=== PATIENT | male | born 1995 | race Native Hawaiian/Other Pacific Islander ===

== ENCOUNTER 2021-02-10 17:40 | Emergency (ER) | payer OTHER ==
[~2021-02-10] VITALS: Ht 182.8 cm; Wt 127.0 kg
--- NOTE | 2021-02-10 18:22 | ED Cough/URI ---
General Chief Complaint: Respiratory Problems Stated Complaint: FEVER,CHILLS,SOB Nursing Triage Note: Ambulatory to ED. Pt reports having seasonal allergies and has had a runny nose. Pt reports sudden onset of cough on SOB with exertion today at approximately 1330. Pt reports history of asthma but does not use inhalers or breathing treatments. Sepsis Screen: No Definite Risk Source: patient Exam Limitations: no limitations History of Present Illness Date Seen by Provider: February 10, 2021 Time Seen by Provider: 18:15 Initial Comments Patient is a 25-year-old male who presents to the emergency department today with a chief complaint of feeling short of breath and having a cough that is nonproductive. Patient states that he got home from work and went to lay down when he had a sudden onset of a coughing fit. He became concerned that he might have Covid secondary to the of his grandfather within the last month from Covid as well as several coworkers on different shifts testing positive over the course of the last 2 to 3 weeks. Patient states that he has had runny nose and congestion. He denies sore throat. He denies loss of taste or smell. These symptoms all started suddenly today. The patient states that he has a history of asthma and uses Benadryl for his allergies. He does not use inhalers. All other review of systems reviewed and negative except as stated. Timing/Duration: this afternoon Severity/Quality: moderate, dry cough Prior Episodes/Possible Cause: no prior episodes Modifying Factors: Improves With Coughing Associated Symptoms: nasal congestion, nasal drainage Allergies and Home Medications Allergies Coded Allergies: Sulfa (Sulfonamide Antibiotics) (Verified Allergy, Severe, Anaphylaxis, 02/10/21) codeine (Verified Allergy, Severe, Anaphylaxis, 02/10/21) Patient Home Medication List Home Medication List Reviewed: Yes Review of Systems Review of Systems Constitutional: see HPI EENTM: nose congestion Respiratory: cough, short of breath Cardiovascular: no symptoms reported Gastrointestinal: no symptoms reported Genitourinary: no symptoms reported Musculoskeletal: no symptoms reported Skin: no symptoms reported All Other Systems Reviewed Negative Unless Noted: Yes Past Dlflzlm-Qinese-Cytjln Hx Patient Social History Alcohol Use: Denies Use 2nd Hand Smoke Exposure: Yes (chews nicotine pouches) Recent Infectious Disease Expo: No Recent Hopitalizations: No Seasonal Allergies Seasonal Allergies: Yes Past Medical History Surgeries: Yes Appendectomy Respiratory: Yes Asthma Cardiac: No Neurological: Yes Cerebral Palsy Genitourinary: No Gastrointestinal: No Musculoskeletal: No Endocrine: No HEENT: No Cancer: No Psychosocial: No Integumentary: No Physical Exam Vital Signs - First Documented 02/10/21 17:50 Temp 36.4 Pulse 106 Resp 20 B/P (MAP) 148/99 (115) Pulse Ox 97 O2 Delivery Room Air Capillary Refill : Less Than 3 Seconds Height: '" Weight: lbs. oz. kg; 38.00 BMI Method: General Appearance: WD/WN, no apparent distress Eyes: Bilateral Eye Normal Inspection, Bilateral Eye PERRL, Bilateral Eye EOMI HEENT: normal ENT inspection, pharynx normal Respiratory: lungs clear, normal breath sounds, no respiratory distress, no accessory muscle use Cardiovascular: regular rate, rhythm, tachycardia Gastrointestinal: non tender, soft Extremities: normal inspection Neurologic/Psychiatric: alert, normal mood/affect, oriented x 3 Skin: normal color, warm/dry Progress/Results/Core Measures Suspected Sepsis Recent Fever Within 48 Hours: No Infection Criteria Present: None New/Unexplained Altered Menta: No Sepsis Screen: No Definite Risk SIRS Temperature: Pulse: 106 Respiratory Rate: 20 Blood Pressure 148 /99 Mean: 115 Results/Orders Lab Results Laboratory Tests Test 02/10/21 18:05 Range/Units SARS-CoV-2 RNA (RT-PCR) Not Detected Not Detecte My Orders Orders - IRIS POSADA MD Covid 19 Inhouse Test (02/10/21 18:22) Vital Signs/I&O 02/10/21 17:50 Temp 36.4 Pulse 106 Resp 20 B/P (MAP) 148/99 (115) Pulse Ox 97 O2 Delivery Room Air Capillary Refill : Less Than 3 Seconds Blood Pressure Mean: 115 Progress Note : Time: 18:59 Progress Note Patient's Covid test is negative. Home with supportive care/bokq-voe-tohkvsu allergy medications/Robitussin Departure Impression Primary Impression: Upper respiratory infection Qualified Codes: J06.9 - Acute upper respiratory infection, unspecified Disposition: HOME, SELF-CARE Condition: Stable Departure-Patient Inst. Decision time for Depature: 19:01 Referrals: [facility] [place] UNKNOWN (PCP) Primary Care Physician Patient Instructions: Viral Upper Respiratory Infection, Adult (DC) Add. Discharge Instructions: Drink plenty of fluids to stay well-hydrated. Use xddr-cml-trqnjgs allergy medicine such as Zyrtec, Khadijah, Claritin for your congestion, runny nose and cough. You can also use uxxn-uge-qadhzko Robitussin for your cough symptoms. Follow-up with a primary care provider. Return to the emergency room for any new, concerning or worsening symptoms. Work/School Note: Work Release Form Date Seen in the Emergency Department: February 10, 2021 Return to Work: February 11, 2021 Other Restrictions Listed Below: Patient's Rapid Covid test was negative today IRIS POSADA MD February 10, 2021 18:22
[2021-02-10 19:10] VITALS: BP 135/96
== END 2021-02-10 19:10 | disposition home or self-care (01) ==
LOC: EDUNIT# 17:40 → ER 17:44
DX: J06.9 Acute upper respiratory infection, unspecified (principal); R00.0 Tachycardia, unspecified; J45.909 Unspecified asthma, uncomplicated; G80.9 Cerebral palsy, unspecified; F17.220 Nicotine dependence, chewing tobacco, uncomplicated; Z88.2 Allergy status to sulfonamides; Z88.5 Allergy status to narcotic agent
CPT/HCPCS: 87636; 99282